=== PATIENT | female | born 1985 | race African-American/Black ===

== ENCOUNTER 2018-07-19 01:38 | Emergency (ER) | payer OTHER ==
[2018-07-19] MEDS ORDERED: SODIUM CHLORIDE 1,000 ML IV STA (02:08)
--- NOTE | 2018-07-19 02:09 | PDOC ---
*Physical Exam - Vital Signs Last Vital Signs Temp Pulse Resp BP Pulse Ox 97.8 F 112 H 19 154/78 100 07/19/18 01:40 07/19/18 01:40 07/19/18 01:40 07/19/18 01:40 07/19/18 01:40 ED Treatment Course - LABORATORY CBC & Chemistry Diagram: 07/19/18 02:13 07/19/18 02:13 Medical Decision Making - Medical Decision Making 07/19/18 02:09 Ms Long is a 33 yo F h/o depression and alcohol abuse She presents to the ER for evaluation of hallucination She has noted visual hallucinations of cartoon characters intermittently for the past few days She was seen at an outside hospital where she was going to be admitted for alcohol withdrawal but pt did not want to stay and left ama Pt spoke with her psychiatrist today who recommended that she come to the ER Pt denies SI and [place] Pt denies drug use Pt does not want to be admitted to [facility] (as she lives in [place]) Pt told that she can wait in the ER to be seen by the psychiatrist She does not want to do this She is accompanied by a family member Pt seen by Midlevel Provider under my direct supervision Pt interviewed and examined Ancillary studies reviewed - hypoglycemia treated with juice and sandwich I agree with plan as outlined by Midlevel Provider 07/19/18 04:48 07/19/18 04:49 07/19/18 22:53 *DC/Admit/Observation/Transfer Diagnosis at time of Disposition: Alcohol withdrawal Qualifiers: Complication of substance-induced condition: uncomplicated Qualified Code(s): F10.230 - Alcohol dependence with withdrawal, uncomplicated - Discharge Dispostion Disposition: HOME Condition at time of disposition: Stable - Referrals Referrals: Alfredo Ponce [Other] - Call tomorrow Stewart Mcwilliams MD [Primary Care Provider] - 2 Days - Patient Instructions Printed Discharge Instructions: DI for Alcohol Abuse, DI for Drug or Alcohol Withdrawal Additional Instructions: Thank you for choosing [facility]. It was a pleasure taking care of you. Would recommend going to drug detox/rehab program such as in [facility] Please be sure to also follow-up with your psychiatrist Return to the Emergency Department if your symptoms worsen or persist, you have fever, shortness of breath, chest pain, severe abdominal pain, vomiting, severe tremors or shaking, seizures, have thoughts of hurting yourself or others or other concerning symptoms. - Post Discharge Activity
[2018-07-19 02:12] VITALS: TEMP 97.8; BMI 30.4
[2018-07-19] MEDS ORDERED: chlordiazePOXIDE HCL 25 MG CAPSULE PO ONE (02:13)
[2018-07-19] MEDS ORDERED: chlordiazePOXIDE HCL 25 MG CAPSULE ONE (02:20)
--- NOTE | 2018-07-19 02:22 | PDOC ---
History of Present Illness - General Chief Complaint: Alcohol intoxication Stated Complaint: ALCOHOL WITHDRAWAL SYMPTOMS Time Seen by Provider: 07/19/18 01:50 History Source: Patient Exam Limitations: No Limitations - History of Present Illness Initial Comments: 33 y/o F hx of depression, alcohol abuse presents for visual hallucinations since 2 days ago. Mentions drinks alcohol daily (1.5 pints daily). Her last alcohol intake was 2 hours ago (had 2 shots of alcohol); also had a pint sometime before that. States she went to ED in [place] 2 days ago who admitted her for alcohol withdrawal, but states she walked out as they were ignoring her hallucination issue. Mentions seeing Logan the Pooh, Ezequiel Mouse dancing on wall; sometimes seeing rogers growing on wall. Denies auditory hallucinations. Denies drug use. Mentions is interested in alcohol detoxification. Spoke to her psychiatrist, Dr. Constanza Willard, today regarding her symptoms, who advised her to come to ED. Has mild nausea. Otherwise, denies headache, sob, cp, abd pain, vomiting, S/H ideation. Current meds: Prozac Wellbutrin 07/19/18 02:17 Past History - Past Medical History Allergies/Adverse Reactions: Allergies Allergy/AdvReac Type Severity Reaction Status Date / Time latex Allergy Mild Verified 07/19/18 02:09 Other medical history: Depression - Suicide/Smoking/Psychosocial Hx Smoking History: Never smoked Hx Alcohol Use: No Drug/Substance Use Hx: No Review of Systems - Review of Systems Comments:: See HPI 07/19/18 02:25 *Physical Exam - Vital Signs Last Vital Signs Temp Pulse Resp BP Pulse Ox 97.8 F 112 H 19 154/78 100 07/19/18 01:40 07/19/18 01:40 07/19/18 01:40 07/19/18 01:40 07/19/18 01:40 - Physical Exam General Appearance: No: Apparent Distress HEENT: positive: EOMI, MICHAEL Respiratory/Chest: positive: Lungs Clear, Normal Breath Sounds. negative: Respiratory Distress Cardiovascular: positive: Regular Rhythm, S1, S2, Tachycardia. negative: Murmur Gastrointestinal/Abdominal: positive: Normal Bowel Sounds, Soft. negative: Tender, Distended, Guarding, Rebound Neurologic: positive: Fully Oriented, Alert, Normal Mood/Affect, Other (Very minimal hand tremor noted; no tongue fasciculations). negative: Confused, Disoriented Moderate Sedation - Procedure Monitoring Vital Signs: Procedure Monitoring Vital Signs Temperature 97.8 F 07/19/18 01:40 Pulse Rate 112 H 07/19/18 01:40 Respiratory Rate 19 07/19/18 01:40 Blood Pressure 154/78 07/19/18 01:40 O2 Sat by Pulse Oximetry (%) 100 07/19/18 01:40 ED Treatment Course - LABORATORY CBC & Chemistry Diagram: 07/19/18 02:13 07/19/18 02:13 Medical Decision Making - Medical Decision Making 33 y/o F hx of depression and alcohol abuse presents with concern for alcohol withdrawal and auditory hallucinations. Clinically, patient appears well other than mild hand tremor. Patient is a bit tachycardic and hypertensive. Consider alcohol related psychosis? Less likely alcoholic hallucinosis or delirium tremens as patient had recent alcohol intake around 2 hours ago. Currently denies S/H ideation. Will medically clear patient and consider referral to [facility]. Plan: CBC, CMP, alcohol level, Mg, UCG, Utox, IVF, PO Librium 07/19/18 02:27 Labs reviewed Alcohol level negative Glucose initially low, but patient given food with FS checked and it was 98 Utox positive for benzos and ecstasy (though patient still denies taking any type of drugs) Repeat vitals improved Patient appears well with no evidence of withdrawal Was planning on referring patient to [facility], but patient states she would prefer to go home now as she lives in [place]. She states she will go there later. Patient still denies S/H ideation. Stable for d/c 07/19/18 04:16 *DC/Admit/Observation/Transfer Diagnosis at time of Disposition: Alcohol withdrawal Qualifiers: Complication of substance-induced condition: uncomplicated Qualified Code(s): F10.230 - Alcohol dependence with withdrawal, uncomplicated - Discharge Dispostion Disposition: HOME Condition at time of disposition: Stable Decision to Admit order: No - Referrals Referrals: Stewart Mcwilliams MD [Primary Care Provider] - 2 Days [facility] [Other] - Call tomorrow - Patient Instructions Printed Discharge Instructions: DI for Alcohol Abuse, DI for Drug or Alcohol Withdrawal Additional Instructions: Thank you for choosing [facility]. It was a pleasure taking care of you. Would recommend going to drug detox/rehab program such as in [facility] Please be sure to also follow-up with your psychiatrist Return to the Emergency Department if your symptoms worsen or persist, you have fever, shortness of breath, chest pain, severe abdominal pain, vomiting, severe tremors or shaking, seizures, have thoughts of hurting yourself or others or other concerning symptoms. - Post Discharge Activity
[2018-07-19 02:24] LABS: BASO % 0.6 % (0-2.0); EOS % 0.8 % (0-4.5); HEMATOCRIT 33.2 % (32.4-45.2); HEMOGLOBIN 11.5 GM/dL (10.7-15.3); MCH 33.9 pg (25.7-33.7); MCHC 34.7 g/dl (32.0-36.0); MEAN CELL VOLUME 97.5 fl (80-96); MEAN PLT VOLUME 7.1 fl (7.5-11.1); MONO % 15.2 % (3.8-10.2); NEUT % 47.4 % (42.8-82.8); PLATELET COUNT 253 K/MM3 (134-434); RDW 14.8 % (11.6-15.6); WHITE BLOOD COUNT 2.4 K/mm3 (4.0-10.0)
[2018-07-19 02:48] LABS: ALBUMIN 3.8 g/dl (3.4-5.0); ALK PHOS 47 U/L (45-117); ANION GAP 8 MMOL/L (8-16); BILIRUBIN,TOTAL 0.2 mg/dL (0.2-1); BLOOD UREA NITROGEN 10 mg/dL (7-18); CALCIUM 9.1 mg/dL (8.5-10.1); CHLORIDE 103 mmol/L (98-107); CO2 30 mmol/L (21-32); CREATININE 0.8 mg/dL (0.55-1.3); GLUCOSE,RANDOM 56 mg/dL (74-106); POTASSIUM 3.7 mmol/L (3.5-5.1); SGOT/AST 33 U/L (15-37); SGPT/ALT 33 U/L (13-61); SODIUM 141 mmol/L (136-145); TOT PROT 7.9 g/dl (6.4-8.2)
[2018-07-19 03:57] LABS: COCAINE, UR NEGATIVE ng/ml (CUTOFF=300); METHADONE, UR NEGATIVE ng/ml (CUTOFF=300); OPIATES, URI NEGATIVE ng/ml (CUTOFF=300); PHENCYCLIDINE,URINE NEGATIVE ng/ml (CUTOFF=25); URINE AMPHETAMINES NEGATIVE ng/ml (CUTOFF=500); URINE BARBITURATES NEGATIVE ng/ml (CUTOFF=200)
[2018-07-19 03:59] LABS: URINE BENZODIAZEPINES POSITIVE ng/ml (CUTOFF=200)
[2018-07-19 04:50] VITALS: BP 140/78; PULSE 82
== END 2018-07-19 04:51 | disposition home or self-care (01) ==
LOC: JER 01:38
PROC: 3E0337Z Introduction of Electrolytic and Water Balance Substance into Peripheral Vein, Percutaneous Approach (ICD-10-PCS; principal; 2018-07-16)
DX: F10.230 Alcohol dependence with withdrawal, uncomplicated (principal); F32.9 Major depressive disorder, single episode, unspecified
CPT/HCPCS: 36415; 80053; 80307; 82962; 83735; 84703; 85025; 99282-25; J7030